=== PATIENT | female | born 1970 | race African-American/Black ===

== ENCOUNTER 2018-04-25 20:35 | Inpatient (IN) ==
[2018-04-25] MEDS ORDERED: SODIUM CHLORIDE 0.9% 1,000 ML IV STA (23:26)
[2018-04-26 00:32] LABS: Basophils % 0.1 % (0.0-0.8); Hematocrit 34.7 VOL% (35.7-47.0); Hemoglobin 12.4 GM/DL (12.0-16.0); Immature Granulocytes Absolute 0.07 #; Lymphocytes # 1.3 10*3/uL (1.4-4.0); Lymphocytes % 17.2 % (21.3-54.2); Mean Corpuscular HGB Conc 35.7 GM/DL (32-36); Mean Corpuscular Hemoglobin 35 PG (27-34); Mean Corpuscular Volume 98.6 FL (87-102); Mean Platelet Volume 10.5 FL (9.6-12.0); Monocytes # 0.5 10*3/uL (0.11-0.8); Monocytes % 6.3 % (1.7-12.7); NRBC # 0.04 10*3/uL; Neutrophils # 5.5 10*3/uL (1.4-7.4); Neutrophils % 75.4 % (38.7-73.9); Platelet Count 205 T/CUMM (130-400); Red Blood Count 3.52 MC/CUMM (3.8-5.5); White Blood Count 7.3 T/CUMM (4-12)
[2018-04-26 01:05] LABS: Albumin 3.4 G/DL (3.4-5.0); Bilirubin,Total 1.6 MG/DL (0.2-1.0); Calcium 9.1 MG/DL (8.5-10.1); Osmolality,Calculated 278.4 MOS/KG (273-304); Potassium 4.1 MMOL/L (3.5-5.1); Total Protein 8.2 G/DL (6.4-8.3)
[2018-04-26 02:54] LABS: Apearance,Urine Slightly Hazy (Clear); Bilirubin,Urine Negative (Negative); Blood, Urine Negative (Negative); Glucose,Urine (UA) Negative (Negative); Hyaline Casts,Urine 1 /LPF (0-3); Ketones,Urine 20 mg/dL (Negative); Mucus,Urine Occasional /LPF (Occasional); Nitrite,Urine Negative (Negative); Protein,Urine Negative; RBC,Urine 7 /HPF (0-4); Squamous Epithelial Cell,Urine Occasional /HPF (0-10); Urine Color Yellow (Yellow); Urine Specific Gravity 1.019 (1.001-1.035); WBC,Urine 123 /HPF (0-6)
[2018-04-26] MEDS ORDERED: diphenhydrAMINE CAP 25 MG CAPSULE PO PRN (03:59)
[2018-04-26] MEDS ORDERED: LACTULOSE 20 GM/30 ML UDCUP PO PRN (03:59)
[2018-04-26] MEDS ORDERED: NICOTINE 21 MG/24 HR PATCH TRANSDERM PRN (03:59)
[2018-04-26] MEDS ORDERED: PROMETHAZINE 25 MG/1 ML VIAL IM PRN (03:59)
[2018-04-26] MEDS ORDERED: SODIUM CHLORIDE 0.9% 1,000 ML IV SCH (04:00)
[2018-04-26 04:58] LABS: Barbiturates Screen,Urine Negative (Negative); Benzodiazepines Screen,Urine Negative (Negative); Cannabinoid Screen,Urine Negative (Negative); Opiate Screen,Urine Negative (Negative); Phencyclidine Screen,Urine Negative (Negative)
[2018-04-26] MEDS: cefTRIAXone 1,000 MG in SYRINGE 1 EACH IV SCH ×2 (06:48→18:27)
[2018-04-26 07:40] LABS: Hepatitis A Ab IgM Quant < 0.02 Index; Hepatitis A Ab IgM Result Negative (Negative); Hepatitis B Core IgM Quant 0.15 Index; Hepatitis B Core IgM Result Negative (Negative); Hepatitis B Surface Ag Quant < 0.10 Index; Hepatitis B Surface Ag Result Negative (Negative); Hepatitis C Virus Ab Quant 0.11 Index; Hepatitis C Virus Ab Result Negative (Negative)
[2018-04-26] MEDS ORDERED: PANTOPRAZOLE 40 MG TABLET PO SCH (09:00)
[2018-04-26 10:39] LABS: % Iron Saturation 22.7 % (18-50); Bilirubin,Direct 0.53 MG/DL (0.0-0.20)
[2018-04-26 10:48] LABS: INR 1.2; PT Patient Result 12.6 SECS
[2018-04-26 10:51] LABS: Folate > 24.0 NG/ML (5.4-24.0); Vitamin B12 622 PG/ML (211-911)
[2018-04-26 11:06] LABS: Free T4 (Free Thyroxine) 1.06 NG/DL (0.76-1.46); Thyroid Stimulating Hormone 1.92 uIU/ml (0.358-3.74)
[2018-04-26 17:08] LABS: HIV Antigen/Antibody Result Nonreactive (Nonreactive)
[2018-04-26] MEDS: MYLANTA/LIDO VISC 2:1 300 ML BOTTLE SWISH/SWAL PRN (17:30)
[2018-04-26] MEDS: DEXTROSE 5% NACL 0.45% 1,000 ML IV SCH (17:40)
[2018-04-26] MEDS: MORPHINE 4 MG/1 ML VIAL IV PRN (18:46)
[2018-04-26] MEDS: PANTOPRAZOLE 40 MG TABLET PO SCH (23:50)
[2018-04-26] MEDS: MULTIVITAMIN (PRENATAL) TABLET PO SCH (23:50)
[2018-04-27] MEDS: DEXTROSE 5% NACL 0.45% 1,000 ML IV SCH ×2 (02:44→20:46)
[2018-04-27 04:15] LABS: Basophils % 0.2 % (0.0-0.8); Eosinophils # 0.1 10*3/uL (0.0-0.87); Eosinophils % 1.3 % (0.00-10.9); Hematocrit 27.5 VOL% (35.7-47.0); Hemoglobin 9.8 GM/DL (12.0-16.0); Immature Granulocytes % 0.9 %; Immature Granulocytes Absolute 0.04 #; Lymphocytes # 1.2 10*3/uL (1.4-4.0); Lymphocytes % 25.1 % (21.3-54.2); Mean Corpuscular HGB Conc 35.6 GM/DL (32-36); Mean Corpuscular Hemoglobin 35 PG (27-34); Mean Corpuscular Volume 96.8 FL (87-102); Mean Platelet Volume 10.2 FL (9.6-12.0); Monocytes # 0.4 10*3/uL (0.11-0.8); Monocytes % 9.6 % (1.7-12.7); Neutrophils # 2.9 10*3/uL (1.4-7.4); Neutrophils % 62.9 % (38.7-73.9); Platelet Count 184 T/CUMM (130-400); Red Blood Count 2.84 MC/CUMM (3.8-5.5); Red Cell Distribution Width 15.7 % (9.3-17.3); White Blood Count 4.6 T/CUMM (4-12)
[2018-04-27 04:35] LABS: Albumin 2.6 G/DL (3.4-5.0); Bilirubin,Direct 0.48 MG/DL (0.0-0.20); Bilirubin,Indirect 0.6 MG/DL (0.0-1.0); Bilirubin,Total 1.1 MG/DL (0.2-1.0); Total Protein 6.4 G/DL (6.4-8.3)
[2018-04-27 04:44] LABS: Osmolality,Calculated 271.8 MOS/KG (273-304)
[2018-04-27] MEDS: cefTRIAXone 1,000 MG in SYRINGE 1 EACH IV SCH ×2 (06:50→17:59)
[2018-04-27] MEDS ORDERED: MAGNESIUM SULF RIDER 4 GM in PREMIX 1 EACH IV ONE (07:51)
[2018-04-27] MEDS ORDERED: POTASSIUM CHLORIDE RIDER 10 MEQ in PREMIX 1 EACH IV PRN (07:51)
[2018-04-27] MEDS: PANTOPRAZOLE 40 MG TABLET PO SCH ×2 (08:37→22:47)
[2018-04-27] MEDS: MULTIVITAMIN (PRENATAL) TABLET PO SCH ×2 (08:37→22:47)
[2018-04-27] MEDS: MORPHINE 4 MG/1 ML VIAL IV PRN (09:31)
[2018-04-27] MEDS: POTASSIUM CHLORIDE 20 MEQ TABLET PO SCH ×2 (11:57→22:47)
[2018-04-27] MEDS: POTASSIUM CHLORIDE 20 MEQ TABLET PO PRN ×4 (11:57→17:59)
[2018-04-27] MEDS ORDERED: SKIN HEALING OINT (AQUAPHOR) 50 GM TUBE TOP PRN (12:40)
[2018-04-27] MEDS ORDERED: diphenhydrAMINE CAP 50 MG CAPSULE PO ONE (13:43)
[2018-04-28 00:54] LABS: Basophils % 0.2 % (0.0-0.8); Eosinophils # 0.1 10*3/uL (0.0-0.87); Eosinophils % 1.7 % (0.00-10.9); Hematocrit 31.9 VOL% (35.7-47.0); Hemoglobin 11.3 GM/DL (12.0-16.0); Immature Granulocytes % 0.4 %; Immature Granulocytes Absolute 0.02 #; Lymphocytes % 20.2 % (21.3-54.2); Mean Corpuscular HGB Conc 35.4 GM/DL (32-36); Mean Corpuscular Hemoglobin 35 PG (27-34); Mean Corpuscular Volume 98.2 FL (87-102); Mean Platelet Volume 10.5 FL (9.6-12.0); Monocytes # 0.5 10*3/uL (0.11-0.8); Monocytes % 10.6 % (1.7-12.7); NRBC # 0.03 10*3/uL; Neutrophils # 3.2 10*3/uL (1.4-7.4); Neutrophils % 66.9 % (38.7-73.9); Platelet Count 213 T/CUMM (130-400); Red Blood Count 3.25 MC/CUMM (3.8-5.5); White Blood Count 4.8 T/CUMM (4-12)
[2018-04-28 01:10] LABS: Calcium 8.4 MG/DL (8.5-10.1); Osmolality,Calculated 277.4 MOS/KG (273-304); Potassium 5.1 MMOL/L (3.5-5.1)
[2018-04-28 01:13] LABS: Albumin 2.7 G/DL (3.4-5.0); Bilirubin,Direct 0.35 MG/DL (0.0-0.20); Bilirubin,Indirect 0.2 MG/DL (0.0-1.0); Bilirubin,Total 0.5 MG/DL (0.2-1.0); Total Protein 7.1 G/DL (6.4-8.3)
[2018-04-28] MEDS: DEXTROSE 5% NACL 0.45% 1,000 ML IV SCH (04:30)
[2018-04-28] MEDS: cefTRIAXone 1,000 MG in SYRINGE 1 EACH IV SCH (05:58)
[2018-04-28] MEDS: ONDANSETRON 4 MG/2 ML VIAL IV PRN ×2 (06:22→11:54)
[2018-04-28] MEDS ORDERED: cefTRIAXone 1,000 MG in SYRINGE 1 EACH IV ONE (09:00)
[2018-04-28] MEDS: MYLANTA/LIDO VISC 2:1 300 ML BOTTLE SWISH/SWAL PRN (09:02)
[2018-04-28] MEDS: DRONABINOL 2.5 MG CAPSULE PO SCH ×2 (09:02→16:10)
[2018-04-28] MEDS: POTASSIUM CHLORIDE 20 MEQ TABLET PO SCH ×2 (09:02→21:44)
[2018-04-28] MEDS: PANTOPRAZOLE 40 MG TABLET PO SCH (09:02)
[2018-04-28] MEDS: MULTIVITAMIN (PRENATAL) TABLET PO SCH ×2 (09:02→21:44)
[2018-04-28] MEDS: MORPHINE 4 MG/1 ML VIAL IV PRN (14:12)
[2018-04-28] MEDS ORDERED: SODIUM CHLORIDE 0.9% IV ONE (14:30)
[2018-04-28] MEDS ORDERED: SODIUM PHOSPHATE IV ONE (14:30)
[2018-04-28] MEDS: METOCLOPRAMIDE 10 MG/2 ML VIAL IV SCH (17:59)
[2018-04-29] MEDS: METOCLOPRAMIDE 10 MG/2 ML VIAL IV SCH ×5 (00:51→23:42)
[2018-04-29] MEDS: DEXTROSE 5% NACL 0.45% 1,000 ML IV SCH ×3 (03:52→23:43)
[2018-04-29 05:11] LABS: Basophils % 0.2 % (0.0-0.8); Eosinophils # 0.1 10*3/uL (0.0-0.87); Eosinophils % 2.9 % (0.00-10.9); Hematocrit 29.4 VOL% (35.7-47.0); Hemoglobin 10.3 GM/DL (12.0-16.0); Immature Granulocytes Absolute 0.05 #; Lymphocytes # 1.2 10*3/uL (1.4-4.0); Lymphocytes % 24.5 % (21.3-54.2); Mean Corpuscular Hemoglobin 35 PG (27-34); Mean Platelet Volume 10.9 FL (9.6-12.0); Monocytes # 0.5 10*3/uL (0.11-0.8); Neutrophils # 2.9 10*3/uL (1.4-7.4); Neutrophils % 60.4 % (38.7-73.9); Platelet Count 224 T/CUMM (130-400); Red Blood Count 2.91 MC/CUMM (3.8-5.5); Red Cell Distribution Width 16.8 % (9.3-17.3); White Blood Count 4.8 T/CUMM (4-12)
[2018-04-29 05:52] LABS: Calcium 8.5 MG/DL (8.5-10.1); Osmolality,Calculated 278.3 MOS/KG (273-304); Potassium 4.9 MMOL/L (3.5-5.1)
[2018-04-29] MEDS: MULTIVITAMIN (PRENATAL) TABLET PO SCH ×2 (08:42→21:04)
[2018-04-29] MEDS: DRONABINOL 2.5 MG CAPSULE PO SCH ×2 (08:42→17:54)
[2018-04-29] MEDS: POTASSIUM CHLORIDE 20 MEQ TABLET PO SCH ×2 (08:42→21:04)
[2018-04-29] MEDS: cefTRIAXone 1,000 MG in SYRINGE 1 EACH IV SCH (08:42)
[2018-04-29] MEDS: PANTOPRAZOLE 40 MG TABLET PO SCH (08:42)
[2018-04-29 09:29] LABS: Albumin 2.6 G/DL (3.4-5.0); Bilirubin,Direct 0.26 MG/DL (0.0-0.20); Bilirubin,Indirect 0.1 MG/DL (0.0-1.0); Bilirubin,Total 0.4 MG/DL (0.2-1.0); Total Protein 6.7 G/DL (6.4-8.3)
[2018-04-30] MEDS: MORPHINE 4 MG/1 ML VIAL IV PRN ×2 (02:16→17:38)
[2018-04-30 05:11] LABS: Calcium 8.9 MG/DL (8.5-10.1); Osmolality,Calculated 276.5 MOS/KG (273-304); Potassium 4.5 MMOL/L (3.5-5.1)
[2018-04-30] MEDS: METOCLOPRAMIDE 10 MG/2 ML VIAL IV SCH ×3 (06:27→17:12)
[2018-04-30] MEDS ORDERED: SODIUM PHOSPHATE IV ONE (09:00)
[2018-04-30] MEDS ORDERED: SODIUM CHLORIDE 0.9% IV ONE (09:00)
[2018-04-30] MEDS: MULTIVITAMIN (PRENATAL) TABLET PO SCH ×2 (10:31→22:24)
[2018-04-30] MEDS: PANTOPRAZOLE 40 MG TABLET PO SCH (10:31)
[2018-04-30] MEDS: POTASSIUM CHLORIDE 20 MEQ TABLET PO SCH ×2 (10:31→22:24)
[2018-04-30] MEDS: cefTRIAXone 1,000 MG in SYRINGE 1 EACH IV SCH (10:31)
[2018-04-30] MEDS: DRONABINOL 2.5 MG CAPSULE PO SCH ×2 (10:31→17:12)
[2018-04-30] MEDS: ONDANSETRON 4 MG/2 ML VIAL IV PRN ×2 (11:13→17:38)
[2018-04-30] MEDS: MYLANTA/LIDO VISC 2:1 300 ML BOTTLE SWISH/SWAL PRN (17:39)
[2018-04-30 23:00] LABS: IgA Serum (MAYO) 426 mg/dL (61 - 356)
[2018-05-01] MEDS: METOCLOPRAMIDE 10 MG/2 ML VIAL IV SCH ×4 (00:40→17:36)
[2018-05-01] MEDS: DEXTROSE 5% NACL 0.45% 1,000 ML IV SCH (01:16)
[2018-05-01 05:22] LABS: Basophils % 0.2 % (0.0-0.8); Eosinophils # 0.1 10*3/uL (0.0-0.87); Eosinophils % 2.4 % (0.00-10.9); Hematocrit 29.4 VOL% (35.7-47.0); Hemoglobin 9.7 GM/DL (12.0-16.0); Immature Granulocytes % 0.5 %; Immature Granulocytes Absolute 0.03 #; Lymphocytes # 1.1 10*3/uL (1.4-4.0); Lymphocytes % 19.6 % (21.3-54.2); Mean Corpuscular Hemoglobin 33 PG (27-34); Mean Corpuscular Volume 100.7 FL (87-102); Mean Platelet Volume 10.7 FL (9.6-12.0); Monocytes # 0.5 10*3/uL (0.11-0.8); Monocytes % 9.6 % (1.7-12.7); Neutrophils # 3.7 10*3/uL (1.4-7.4); Neutrophils % 67.7 % (38.7-73.9); Platelet Count 312 T/CUMM (130-400); Red Blood Count 2.92 MC/CUMM (3.8-5.5); Red Cell Distribution Width 16.2 % (9.3-17.3); White Blood Count 5.5 T/CUMM (4-12)
[2018-05-01 05:39] LABS: Calcium 8.8 MG/DL (8.5-10.1); Osmolality,Calculated 272.7 MOS/KG (273-304); Potassium 3.9 MMOL/L (3.5-5.1)
[2018-05-01 05:42] LABS: Albumin 2.5 G/DL (3.4-5.0); Bilirubin,Direct 0.22 MG/DL (0.0-0.20); Bilirubin,Indirect 0.5 MG/DL (0.0-1.0); Bilirubin,Total 0.7 MG/DL (0.2-1.0); Total Protein 6.8 G/DL (6.4-8.3)
[2018-05-01] MEDS ORDERED: MAGNESIUM SULF RIDER 4 GM in PREMIX 1 EACH IV PRN (07:53)
[2018-05-01] MEDS ORDERED: MAGNESIUM SULF RIDER 2 GM in PREMIX 1 EACH IV ONE (09:00)
[2018-05-01] MEDS: PANTOPRAZOLE 40 MG TABLET PO SCH (09:18)
[2018-05-01] MEDS: DRONABINOL 2.5 MG CAPSULE PO SCH ×2 (09:18→17:36)
[2018-05-01] MEDS: MULTIVITAMIN (PRENATAL) TABLET PO SCH ×2 (09:18→22:17)
[2018-05-01] MEDS: POTASSIUM CHLORIDE 20 MEQ TABLET PO SCH ×2 (09:18→22:17)
[2018-05-01] MEDS: MAGNESIUM SULF RIDER 2 GM in PREMIX 1 EACH IV PRN (09:19)
[2018-05-01] MEDS: PREGABALIN 25 MG CAPSULE PO SCH ×2 (14:05→22:16)
[2018-05-01] MEDS: ACETAMINOPHEN 325 MG TABLET PO PRN (14:05)
[2018-05-02] MEDS: METOCLOPRAMIDE 10 MG/2 ML VIAL IV SCH ×4 (00:39→17:22)
[2018-05-02] MEDS: DEXTROSE 5% NACL 0.45% 1,000 ML IV SCH (00:43)
[2018-05-02] MEDS ORDERED: ceFAZolin 1,000 MG in SYRINGE 1 EACH IV ONE (06:00)
[2018-05-02 06:31] LABS: Basophils % 0.1 % (0.0-0.8); Eosinophils # 0.1 10*3/uL (0.0-0.87); Eosinophils % 1.1 % (0.00-10.9); Hemoglobin 10.3 GM/DL (12.0-16.0); Immature Granulocytes % 0.4 %; Immature Granulocytes Absolute 0.03 #; Lymphocytes % 13.5 % (21.3-54.2); Mean Corpuscular HGB Conc 33.2 GM/DL (32-36); Mean Corpuscular Hemoglobin 34 PG (27-34); Monocytes # 0.8 10*3/uL (0.11-0.8); Monocytes % 9.9 % (1.7-12.7); Neutrophils # 5.7 10*3/uL (1.4-7.4); Platelet Count 392 T/CUMM (130-400); Red Blood Count 3.04 MC/CUMM (3.8-5.5); Red Cell Distribution Width 16.1 % (9.3-17.3); White Blood Count 7.5 T/CUMM (4-12)
[2018-05-02 06:36] LABS: Calcium 9.1 MG/DL (8.5-10.1); Osmolality,Calculated 277.4 MOS/KG (273-304); Potassium 4.9 MMOL/L (3.5-5.1)
[2018-05-02 07:11] LABS: Pyridoxal 5-Phosphate (PLP), P 10 mcg/L (5-50)
[2018-05-02] MEDS ORDERED: LIDOCAINE 1% 5 ML VIAL ONE (09:00)
[2018-05-02] MEDS ORDERED: PROPOFOL 200 MG/20 ML VIAL IV ONE (09:00)
[2018-05-02] MEDS ORDERED: GLUCAGON 1 MG VIAL IM PRN (09:50)
[2018-05-02] MEDS ORDERED: DEXTROSE 50% 25 GM/50 ML VIAL IV PRN (09:50)
[2018-05-02] MEDS: POTASSIUM CHLORIDE 20 MEQ TABLET PO SCH ×2 (10:26→10:32)
[2018-05-02] MEDS: PREGABALIN 25 MG CAPSULE PO SCH ×2 (10:26→20:15)
[2018-05-02] MEDS: MULTIVITAMIN (PRENATAL) TABLET PO SCH ×2 (10:26→20:15)
[2018-05-02] MEDS: PANTOPRAZOLE 40 MG TABLET PO SCH (10:26)
[2018-05-02] MEDS: DRONABINOL 2.5 MG CAPSULE PO SCH ×3 (10:26→15:55)
[2018-05-02] MEDS: POTASSIUM PHOS/SOD PHOS POWDER 250 MG PACK PER TUBE SCH ×2 (11:36→15:55)
[2018-05-02] MEDS: MORPHINE 4 MG/1 ML VIAL IV PRN (15:54)
[2018-05-02] MEDS: KETOROLAC 10 MG TABLET PO PRN (20:14)
[2018-05-03] MEDS: DEXTROSE 5% NACL 0.45% 1,000 ML IV SCH ×2 (00:08→20:54)
[2018-05-03] MEDS: METOCLOPRAMIDE 10 MG/2 ML VIAL IV SCH ×4 (00:24→18:26)
[2018-05-03] MEDS: KETOROLAC 10 MG TABLET PO PRN (03:08)
[2018-05-03] MEDS: ACETAMINOPHEN 325 MG TABLET PO PRN (04:10)
[2018-05-03 04:26] LABS: Calcium 8.6 MG/DL (8.5-10.1); Osmolality,Calculated 273.7 MOS/KG (273-304); Potassium 4.4 MMOL/L (3.5-5.1)
[2018-05-03] MEDS: POTASSIUM CHLORIDE 20 MEQ TABLET PO SCH (09:07)
[2018-05-03] MEDS: PREGABALIN 25 MG CAPSULE PO SCH ×2 (09:08→20:37)
[2018-05-03] MEDS: MULTIVITAMIN (PRENATAL) TABLET PO SCH ×2 (09:08→20:37)
[2018-05-03] MEDS: DRONABINOL 2.5 MG CAPSULE PO SCH ×2 (09:08→16:48)
[2018-05-03] MEDS: PANTOPRAZOLE 40 MG TABLET PO SCH (09:08)
[2018-05-03] MEDS: MORPHINE 4 MG/1 ML VIAL IV PRN ×3 (09:08→20:38)
[2018-05-03] MEDS: POTASSIUM PHOS/SOD PHOS POWDER 250 MG PACK PER TUBE SCH ×3 (09:13→16:48)
[2018-05-03] MEDS: MAGNESIUM SULF RIDER 2 GM in PREMIX 1 EACH IV PRN (09:25)
[2018-05-04] MEDS: METOCLOPRAMIDE 10 MG/2 ML VIAL IV SCH ×5 (00:02→23:54)
[2018-05-04] MEDS: KETOROLAC 10 MG TABLET PO PRN ×2 (02:25→21:18)
[2018-05-04 05:32] LABS: Basophils % 0.1 % (0.0-0.8); Eosinophils # 0.1 10*3/uL (0.0-0.87); Eosinophils % 0.8 % (0.00-10.9); Hematocrit 25.7 VOL% (35.7-47.0); Hemoglobin 8.5 GM/DL (12.0-16.0); Immature Granulocytes % 0.3 %; Immature Granulocytes Absolute 0.03 #; Lymphocytes # 0.9 10*3/uL (1.4-4.0); Lymphocytes % 10.1 % (21.3-54.2); Mean Corpuscular HGB Conc 33.1 GM/DL (32-36); Mean Corpuscular Hemoglobin 34 PG (27-34); Mean Platelet Volume 11.4 FL (9.6-12.0); Monocytes # 0.7 10*3/uL (0.11-0.8); Neutrophils # 7.5 10*3/uL (1.4-7.4); Neutrophils % 80.7 % (38.7-73.9); Platelet Count 361 T/CUMM (130-400); Red Blood Count 2.52 MC/CUMM (3.8-5.5); Red Cell Distribution Width 15.4 % (9.3-17.3); White Blood Count 9.3 T/CUMM (4-12)
[2018-05-04] MEDS: MORPHINE 4 MG/1 ML VIAL IV PRN (05:49)
[2018-05-04 05:59] LABS: Calcium 8.2 MG/DL (8.5-10.1); Osmolality,Calculated 275.5 MOS/KG (273-304); Potassium 4.3 MMOL/L (3.5-5.1)
[2018-05-04] MEDS: POTASSIUM CHLORIDE 20 MEQ TABLET PO SCH (10:06)
[2018-05-04] MEDS: DRONABINOL 2.5 MG CAPSULE PO SCH ×2 (10:06→16:25)
[2018-05-04] MEDS: PREGABALIN 25 MG CAPSULE PO SCH ×2 (10:06→21:18)
[2018-05-04] MEDS: MULTIVITAMIN (PRENATAL) TABLET PO SCH ×2 (10:06→21:18)
[2018-05-04] MEDS: PANTOPRAZOLE 40 MG TABLET PO SCH (10:07)
[2018-05-04] MEDS: POTASSIUM PHOS/SOD PHOS POWDER 250 MG PACK PER TUBE SCH (10:16)
[2018-05-04] MEDS: ACETAMINOPHEN 325 MG TABLET PO PRN (16:25)
[2018-05-04] MEDS: DEXTROSE 5% NACL 0.45% 1,000 ML IV SCH (16:26)
[2018-05-05] MEDS: KETOROLAC 10 MG TABLET PO PRN ×2 (03:47→11:26)
[2018-05-05] MEDS: METOCLOPRAMIDE 10 MG/2 ML VIAL IV SCH ×3 (05:19→17:54)
[2018-05-05 05:32] LABS: Basophils % 0.1 % (0.0-0.8); Eosinophils # 0.1 10*3/uL (0.0-0.87); Eosinophils % 1.3 % (0.00-10.9); Hematocrit 25.4 VOL% (35.7-47.0); Hemoglobin 8.6 GM/DL (12.0-16.0); Immature Granulocytes % 0.8 %; Immature Granulocytes Absolute 0.06 #; Lymphocytes # 1.2 10*3/uL (1.4-4.0); Lymphocytes % 15.1 % (21.3-54.2); Mean Corpuscular HGB Conc 33.9 GM/DL (32-36); Mean Corpuscular Hemoglobin 35 PG (27-34); Mean Corpuscular Volume 102.4 FL (87-102); Mean Platelet Volume 10.8 FL (9.6-12.0); Monocytes # 0.7 10*3/uL (0.11-0.8); Monocytes % 9.1 % (1.7-12.7); Neutrophils # 5.9 10*3/uL (1.4-7.4); Neutrophils % 73.6 % (38.7-73.9); Platelet Count 364 T/CUMM (130-400); Red Blood Count 2.48 MC/CUMM (3.8-5.5); White Blood Count 7.9 T/CUMM (4-12)
[2018-05-05 05:48] LABS: Calcium 8.4 MG/DL (8.5-10.1); Osmolality,Calculated 280.3 MOS/KG (273-304); Potassium 4.5 MMOL/L (3.5-5.1)
[2018-05-05 05:53] LABS: Calcium 8.4 MG/DL (8.5-10.1); Osmolality,Calculated 280.3 MOS/KG (273-304); Potassium 4.4 MMOL/L (3.5-5.1); Prealbumin 13.1 MG/DL (20-40)
[2018-05-05] MEDS: MAGNESIUM SULF RIDER 2 GM in PREMIX 1 EACH IV PRN (06:15)
[2018-05-05] MEDS: POTASSIUM CHLORIDE 20 MEQ TABLET PO SCH (08:49)
[2018-05-05] MEDS: ACETAMINOPHEN 325 MG TABLET PO PRN (08:49)
[2018-05-05] MEDS: MULTIVITAMIN (PRENATAL) TABLET PO SCH ×2 (08:55→21:28)
[2018-05-05] MEDS: PREGABALIN 25 MG CAPSULE PO SCH ×2 (08:55→21:28)
[2018-05-05] MEDS: PANTOPRAZOLE 40 MG TABLET PO SCH (08:55)
[2018-05-05] MEDS: DRONABINOL 2.5 MG CAPSULE PO SCH ×2 (08:55→17:54)
[2018-05-05] MEDS: MORPHINE 4 MG/1 ML VIAL IV PRN ×2 (14:33→18:01)
[2018-05-05] MEDS ORDERED: TUBERCULIN SKIN TEST 0.1 ML SYRINGE INTRADERM ONE (15:02)
[2018-05-06] MEDS: METOCLOPRAMIDE 10 MG/2 ML VIAL IV SCH ×3 (00:20→14:23)
[2018-05-06 04:49] LABS: Basophils % 0.1 % (0.0-0.8); Eosinophils # 0.1 10*3/uL (0.0-0.87); Eosinophils % 1.4 % (0.00-10.9); Hemoglobin 8.8 GM/DL (12.0-16.0); Immature Granulocytes % 0.7 %; Immature Granulocytes Absolute 0.05 #; Lymphocytes # 1.1 10*3/uL (1.4-4.0); Lymphocytes % 16.4 % (21.3-54.2); Mean Corpuscular HGB Conc 33.8 GM/DL (32-36); Mean Corpuscular Hemoglobin 35 PG (27-34); Mean Corpuscular Volume 102.4 FL (87-102); Mean Platelet Volume 11.4 FL (9.6-12.0); Monocytes # 0.6 10*3/uL (0.11-0.8); Neutrophils % 72.4 % (38.7-73.9); Platelet Count 378 T/CUMM (130-400); Red Blood Count 2.54 MC/CUMM (3.8-5.5); Red Cell Distribution Width 14.9 % (9.3-17.3); White Blood Count 6.9 T/CUMM (4-12)
[2018-05-06 05:12] LABS: Alanine Aminotransferase 33 U/L (13-56); Albumin 2.2 G/DL (3.4-5.0); Alkaline Phosphatase 81 U/L (45-117); Aspartate Amino Transferase 48 U/L (0-37); Bilirubin,Indirect 0.3 MG/DL (0.0-1.0); Bilirubin,Total < 0.39 MG/DL (0.2-1.0); Total Protein 6.4 G/DL (6.4-8.3)
[2018-05-06] MEDS: KETOROLAC 10 MG TABLET PO PRN (06:00)
[2018-05-06] MEDS ORDERED: LINACLOTIDE 145 MCG CAPSULE PO SCH (07:30)
[2018-05-06] MEDS: PREGABALIN 25 MG CAPSULE PO SCH (10:45)
[2018-05-06] MEDS: MULTIVITAMIN (PRENATAL) TABLET PO SCH (10:45)
[2018-05-06] MEDS: PANTOPRAZOLE 40 MG TABLET PO SCH (10:46)
[2018-05-06] MEDS: POTASSIUM CHLORIDE 20 MEQ TABLET PO SCH (10:47)
[2018-05-06] MEDS: DRONABINOL 2.5 MG CAPSULE PO SCH (10:47)
[2018-05-06 12:39] VITALS: BP 93/69
== END 2018-05-06 14:24 | disposition swing bed (61) | DRG 876 ==
LOC: N.EDINP 20:35 → N.ED 20:35 → SUATTDRO 04-26 03:59 → N.2E 04-26 05:17 → SUATTDRO 04-28 11:23 → N.2E 05-01 23:17
PROVIDERS: ADMIT Family Medicine; ATTEND Internal Medicine
PROC: EGDWPEG (ICD-10-PCS; 2018-05-02 07:35)